=== PATIENT | male | born 1935 | race Caucasian/White ===

== ENCOUNTER 2022-09-23 18:52 | Inpatient (IN) | payer MEDICARE, OTHER ==
[2022-09-23 19:40] LABS: #Basophils 0.1 thou/uL (0.0-0.2); #Eosinphils 0.2 thou/uL (0.0-0.7); #Lymphocytes 2.8 thou/uL (1.20-3.40); #Monocytes 0.9 thou/uL (0.11-0.59); #Neutrophils 4.7 thou/uL (1.40-6.50); %Basophils 0.6 % (0.0-1.0); %Eosinophils 2.6 % (0.0-10.0); %Lymphocytes 31.9 % (21.0-51.0); %Monocytes 10.5 % (0.0-10.0); %Neutrophils 54.5 % (42.0-75.0); Hemoglobin 12.6 g/dL (14.0-18.0); Mean Corpuscular Hemoglobin 32.3 pg (27.0-31.0); Mean Corpuscular Volume 97.8 fl (78.0-98.0); Platelet Count 209 10x3/uL (130-400); RBC Distribution Width 13.3 % (11.5-14.5); Red Blood Cell (RBC) Count 3.89 mill/uL (4.70-6.10); White Blood Cell (WBC) Count 8.6 10x3/uL (4.8-10.8)
[2022-09-23 20:02] LABS: ALT (SGPT) 18 U/L (8-55); AST (SGOT) 24 U/L (5-34); Albumin 4.1 g/dL (3.4-4.8); Alkaline Phosphatase 48 U/L (40-110); Anion Gap 14 mmol/L (10-20); BUN (Urea Nitrogen) 33 mg/dL (8.4-25.7); Bilirubin, Total 0.5 mg/dL (0.2-1.2); Calc. Creatinine Clearance 0 mL/min (70-130); Calcium 9.2 mg/dL (7.8-10.44); Carbon Dioxide 21 mmol/L (23-31); Chloride 109 mmol/L (98-107); Estimated GFR 38; Globulin 2.4 g/dL (2.4-3.5); Glucose 119 mg/dL (83-110); Potassium 5.6 mmol/L (3.5-5.1); Protein, Total 6.5 g/dL (5.8-8.1); Sodium 138 mmol/L (136-145)
[2022-09-23 20:22] LABS: CKMB 7.6 ng/mL (0-6.6)
[2022-09-23 20:23] LABS: SARS-CoV-2 NAA Rapid Test Not Detected (NotDetected)
[2022-09-23] MEDS ORDERED: cefTRIAXone\\ROCEPHIN 1 GM VIAL ONE (21:03)
[2022-09-23] MEDS ORDERED: Aspirin Chewable 81 MG TAB ONE (21:06)
[2022-09-23] MEDS ORDERED: Acetaminophen 650 MG Suppository PR PRN (21:45)
[2022-09-23] MEDS ORDERED: Ondansetron ODT 4 MG TAB PO PRN (21:45)
[2022-09-23] MEDS ORDERED: Azithromycin 500 MG VIAL ONE (21:45)
[2022-09-23] MEDS ORDERED: Ondansetron PF 4 MG/2 ML Vial IVP PRN (21:45)
[2022-09-23] MEDS ORDERED: Acetaminophen 325 MG TAB PO PRN (21:45)
[2022-09-23] MEDS ORDERED: Furosemide 40 MG/4 ML VIAL SLOW IVP SCH (22:00)
[2022-09-23] MEDS ORDERED: Enoxaparin 120 MG/0.8 ML SYRINGE SC SCH (22:00)
[2022-09-23] MEDS ORDERED: Furosemide 40 MG/4 ML VIAL ONE (22:17)
[2022-09-23 22:36] LABS: Troponin I 0.045 ng/mL (< 0.028)
[2022-09-23] MEDS ORDERED: Electrolyte Replacement Protocol 1 EACH FS SCH (23:00)
[2022-09-23] MEDS ORDERED: Dextrose 50% Abboject 50 ML SYRINGE SLOW IVP PRN (23:42)
[2022-09-23] MEDS ORDERED: Dextrose 5% in Water 1,000 ML IV PRN (23:42)
[2022-09-23 23:49] LABS: Anion Gap 16 mmol/L (10-20); BUN (Urea Nitrogen) 31 mg/dL (8.4-25.7); Calc. Creatinine Clearance 0 mL/min (70-130); Calcium 9.6 mg/dL (7.8-10.44); Carbon Dioxide 21 mmol/L (23-31); Chloride 107 mmol/L (98-107); Estimated GFR 35; Glucose 100 mg/dL (83-110); Magnesium 1.9 mg/dL (1.6-2.6); Sodium 139 mmol/L (136-145)
[2022-09-24 01:16] VITALS: BMI 35.2
[2022-09-24] MEDS ORDERED: Magnesium 2 GM/50 ML(in water) 2 GM in Premix Bag 1 BAG IVPB SCH (02:30)
[2022-09-24 02:43] LABS: #Eosinphils 0.3 thou/uL (0.0-0.7); #Lymphocytes 1.9 thou/uL (1.20-3.40); #Neutrophils 4.7 thou/uL (1.40-6.50); %Basophils 0.3 % (0.0-1.0); %Eosinophils 3.7 % (0.0-10.0); %Lymphocytes 23.9 % (21.0-51.0); %Neutrophils 59.1 % (42.0-75.0); Hemoglobin 11.6 g/dL (14.0-18.0); Mean Corpuscular HGB CONC 32.2 g/dL (32.0-36.0); Mean Corpuscular Hemoglobin 31.8 pg (27.0-31.0); Mean Corpuscular Volume 98.7 fl (78.0-98.0); Mean Platelet Volume 7.7 fL (7.4-10.4); Platelet Count 206 10x3/uL (130-400); RBC Distribution Width 13.3 % (11.5-14.5); Red Blood Cell (RBC) Count 3.65 mill/uL (4.70-6.10)
[2022-09-24 03:04] LABS: Chloride 109 mmol/L (98-107); Sodium 140 mmol/L (136-145)
[2022-09-24 03:05] LABS: Calcium 9.1 mg/dL (7.8-10.44); Glucose 108 mg/dL (83-110)
[2022-09-24 03:06] LABS: Troponin I 0.054 ng/mL (< 0.028)
[2022-09-24 03:07] LABS: Anion Gap 15 mmol/L (10-20); Carbon Dioxide 21 mmol/L (23-31)
[2022-09-24 03:09] LABS: BUN (Urea Nitrogen) 36 mg/dL (8.4-25.7); Calc. Creatinine Clearance 43 mL/min (70-130); Estimated GFR 34
[2022-09-24] MEDS ORDERED: Furosemide 40 MG/4 ML VIAL SLOW IVP SCH (10:45)
[2022-09-24 14:43] LABS: Bacteria/HPF None Seen HPF (None Seen); Bilirubin Negative (Negative); Blood, Urine Negative (Negative); Clarity Clear (Clear); Glucose, Urine (Dipstick) Normal (Negative); Ketone, Urine Negative (Negative); Leukocyte Negative Leu/uL (Negative); Nitrite Negative (Negative); Protein, Urine (Dipstick) 20 mg/dL (Neg-Trace); RBC/HPF 0-3 HPF (0-3); Specific Gravity, Urine 1.008 (1.002-1.036); Squamous Epithelial None Seen HPF (0-3); Urobilinogen Normal mg/dL (Less than 2); WBC/HPF 0-3 HPF (0-3)
[2022-09-24] MEDS: Furosemide 40 MG/4 ML VIAL SLOW IVP SCH (15:29)
[2022-09-24 17:04] LABS: Potassium 5.2 mmol/L (3.5-5.1)
[2022-09-24 17:10] LABS: Cardiac Risk 5.2 (Less than 4.5)
[2022-09-24] MEDS ORDERED: Insulin Regular 300 UNITS/3 ML VIAL IVP SCH (18:02)
[2022-09-24] MEDS ORDERED: Dextrose 50% Abboject 50 ML SYRINGE SLOW IVP ONE (18:03)
[2022-09-24] MEDS ORDERED: Dextrose 10% in Water 250 ML IVPB SCH (18:15)
[2022-09-24] MEDS ORDERED: Cyclobenzaprine 10 MG TAB PO SCH (20:15)
[2022-09-24] MEDS: Aspirin 81 mg Enteric Coated Tablet PO SCH (20:47)
[2022-09-24] MEDS: Atorvastatin Calcium 10 MG TAB PO SCH (20:47)
[2022-09-24] MEDS: Heparin 5,000 UNITS/ML VIAL SC SCH (20:52)
[2022-09-24] MEDS: Azithromycin 500 MG in Sodium Chloride 0.9% 250 ML 250 ML IVPB SCH (20:54)
[2022-09-24] MEDS: cefTRIAXone\\ROCEPHIN 1 GM in Sodium Chloride 0.9% 100 ML IVPB SCH (22:54)
[2022-09-25] MEDS: Furosemide 40 MG/4 ML VIAL SLOW IVP SCH (05:54)
[2022-09-25] MEDS: Heparin 5,000 UNITS/ML VIAL SC SCH ×2 (08:57→20:18)
[2022-09-25 09:19] LABS: Anion Gap 13 mmol/L (10-20); BUN (Urea Nitrogen) 39 mg/dL (8.4-25.7); Calc. Creatinine Clearance 39 mL/min (70-130); Calcium 9.5 mg/dL (7.8-10.44); Carbon Dioxide 27 mmol/L (23-31); Chloride 102 mmol/L (98-107); Estimated GFR 32; Glucose 218 mg/dL (83-110); Potassium 4.4 mmol/L (3.5-5.1); Sodium 138 mmol/L (136-145)
[2022-09-25 10:58] LABS: Hemoglobin A1c 6.3 % (4.0-6.0)
[2022-09-25] MEDS ORDERED: Furosemide 40 MG TAB PO SCH (14:00)
[2022-09-25] MEDS: HumaLOG 300 UNITS/3 ML VIAL SC PRN ×2 (16:45→22:00)
[2022-09-25] MEDS: cefTRIAXone\\ROCEPHIN 1 GM in Sodium Chloride 0.9% 100 ML IVPB SCH (20:16)
[2022-09-25] MEDS: Azithromycin 500 MG in Sodium Chloride 0.9% 250 ML 250 ML IVPB SCH (20:17)
[2022-09-25] MEDS: Aspirin 81 mg Enteric Coated Tablet PO SCH (20:17)
[2022-09-25] MEDS: Atorvastatin Calcium 10 MG TAB PO SCH (20:18)
[2022-09-26] MEDS: HumaLOG 300 UNITS/3 ML VIAL SC PRN ×3 (08:01→17:05)
[2022-09-26] MEDS: Heparin 5,000 UNITS/ML VIAL SC SCH ×2 (09:36→20:35)
[2022-09-26 09:57] LABS: Anion Gap 15 mmol/L (10-20); BUN (Urea Nitrogen) 38 mg/dL (8.4-25.7); Calc. Creatinine Clearance 41 mL/min (70-130); Calcium 9.7 mg/dL (7.8-10.44); Carbon Dioxide 27 mmol/L (23-31); Chloride 102 mmol/L (98-107); Estimated GFR 34; Glucose 151 mg/dL (83-110); Phosphorus 3.9 mg/dL (2.3-4.7); Potassium 4.6 mmol/L (3.5-5.1); Sodium 139 mmol/L (136-145)
[2022-09-26] MEDS ORDERED: Magnesium 2 GM/50 ML(in water) 2 GM in Premix Bag 1 BAG IVPB SCH (12:15)
[2022-09-26] MEDS: Atorvastatin Calcium 10 MG TAB PO SCH (20:34)
[2022-09-26] MEDS: Aspirin 81 mg Enteric Coated Tablet PO SCH (20:34)
[2022-09-26] MEDS: Azithromycin 500 MG in Sodium Chloride 0.9% 250 ML 250 ML IVPB SCH (20:35)
[2022-09-26] MEDS: Benzonatate 100 MG CAP PO PRN (21:38)
[2022-09-26] MEDS: cefTRIAXone\\ROCEPHIN 1 GM in Sodium Chloride 0.9% 100 ML IVPB SCH (21:38)
[2022-09-27] MEDS: Furosemide 40 MG TAB PO SCH (08:46)
[2022-09-27] MEDS: Heparin 5,000 UNITS/ML VIAL SC SCH ×2 (08:46→21:13)
[2022-09-27] MEDS: Benzonatate 100 MG CAP PO PRN ×2 (08:46→14:10)
[2022-09-27] MEDS ORDERED: Communication Order-Pharmacy FS SCH (09:00)
[2022-09-27] MEDS ORDERED: FLU VACC QS2022-23(65YR UP)/PF 240 MCG/0.7 ML SYRINGE IM ONE (09:00)
[2022-09-27] MEDS ORDERED: Sodium Chloride 0.9% 1,000 ML IV SCH (09:00)
[2022-09-27] MEDS: HumaLOG 300 UNITS/3 ML VIAL SC PRN ×2 (11:34→17:19)
[2022-09-27] MEDS: Atorvastatin Calcium 10 MG TAB PO SCH (21:13)
[2022-09-27] MEDS: Aspirin 81 mg Enteric Coated Tablet PO SCH (21:13)
[2022-09-27] MEDS: GUAIFENESIN SF SOLN 200 MG/10 ML UDCUP PO PRN (21:13)
[2022-09-27] MEDS: Azithromycin 500 MG in Sodium Chloride 0.9% 250 ML 250 ML IVPB SCH (21:13)
[2022-09-27] MEDS: cefTRIAXone\\ROCEPHIN 1 GM in Sodium Chloride 0.9% 100 ML IVPB SCH (22:18)
[2022-09-28 05:05] LABS: Anion Gap 15 mmol/L (10-20); BUN (Urea Nitrogen) 39 mg/dL (8.4-25.7); Calc. Creatinine Clearance 45 mL/min (70-130); Calcium 9.3 mg/dL (7.8-10.44); Carbon Dioxide 24 mmol/L (23-31); Chloride 104 mmol/L (98-107); Estimated GFR 38; Glucose 147 mg/dL (83-110); Potassium 4.4 mmol/L (3.5-5.1); Sodium 139 mmol/L (136-145)
[2022-09-28] MEDS ORDERED: Sodium Chloride 0.9% 1,000 ML IV SCH (06:00)
[2022-09-28] MEDS: Heparin 5,000 UNITS/ML VIAL SC SCH ×2 (08:57→21:10)
[2022-09-28] MEDS: Furosemide 40 MG TAB PO SCH (11:40)
[2022-09-28] MEDS: Sodium Chloride 0.9% 1,000 ML IV SCH (13:46)
[2022-09-28] MEDS: HumaLOG 300 UNITS/3 ML VIAL SC PRN (18:11)
[2022-09-28] MEDS: Azithromycin 500 MG in Sodium Chloride 0.9% 250 ML 250 ML IVPB SCH (21:08)
[2022-09-28] MEDS: Aspirin 81 mg Enteric Coated Tablet PO SCH (21:09)
[2022-09-28] MEDS: Atorvastatin Calcium 10 MG TAB PO SCH (21:10)
[2022-09-28] MEDS: GUAIFENESIN SF SOLN 200 MG/10 ML UDCUP PO PRN (21:10)
[2022-09-28] MEDS: cefTRIAXone\\ROCEPHIN 1 GM in Sodium Chloride 0.9% 100 ML IVPB SCH (22:28)
[2022-09-29 04:18] LABS: #Eosinphils 0.3 thou/uL (0.0-0.7); #Lymphocytes 2.4 thou/uL (1.20-3.40); #Monocytes 0.8 thou/uL (0.11-0.59); #Neutrophils 2.8 thou/uL (1.40-6.50); %Basophils 0.5 % (0.0-1.0); %Eosinophils 5.3 % (0.0-10.0); %Lymphocytes 37.2 % (21.0-51.0); %Neutrophils 44.9 % (42.0-75.0); Mean Corpuscular HGB CONC 33.2 g/dL (32.0-36.0); Mean Corpuscular Hemoglobin 32.5 pg (27.0-31.0); Mean Corpuscular Volume 97.8 fl (78.0-98.0); Mean Platelet Volume 7.9 fL (7.4-10.4); Platelet Count 214 10x3/uL (130-400); Red Blood Cell (RBC) Count 3.68 mill/uL (4.70-6.10); White Blood Cell (WBC) Count 6.3 10x3/uL (4.8-10.8)
[2022-09-29 04:40] LABS: Anion Gap 10 mmol/L (10-20); BUN (Urea Nitrogen) 35 mg/dL (8.4-25.7); Calc. Creatinine Clearance 49 mL/min (70-130); Calcium 8.9 mg/dL (7.8-10.44); Carbon Dioxide 26 mmol/L (23-31); Chloride 105 mmol/L (98-107); Estimated GFR 43; Glucose 156 mg/dL (83-110); Magnesium 1.9 mg/dL (1.6-2.6); Potassium 4.3 mmol/L (3.5-5.1); Sodium 137 mmol/L (136-145)
[2022-09-29] MEDS: Sodium Chloride 0.9% 1,000 ML IV SCH ×2 (04:45→17:55)
[2022-09-29] MEDS ORDERED: Magnesium 2 GM/50 ML(in water) 2 GM in Premix Bag 1 BAG IVPB SCH (08:00)
[2022-09-29] MEDS: Furosemide 40 MG TAB PO SCH (09:36)
[2022-09-29] MEDS: Benzonatate 100 MG CAP PO PRN ×2 (09:36→20:09)
[2022-09-29] MEDS: Heparin 5,000 UNITS/ML VIAL SC SCH ×2 (09:36→20:09)
[2022-09-29] MEDS ORDERED: Communication Order-Pharmacy FS SCH (17:15)
[2022-09-29] MEDS: HumaLOG 300 UNITS/3 ML VIAL SC PRN (17:55)
[2022-09-29] MEDS: Aspirin 81 mg Enteric Coated Tablet PO SCH (20:08)
[2022-09-29] MEDS: Atorvastatin Calcium 10 MG TAB PO SCH (20:08)
[2022-09-30 05:10] LABS: #Eosinphils 0.3 thou/uL (0.0-0.7); #Lymphocytes 2.8 thou/uL (1.20-3.40); #Monocytes 0.9 thou/uL (0.11-0.59); #Neutrophils 3.5 thou/uL (1.40-6.50); %Basophils 0.5 % (0.0-1.0); %Eosinophils 4.5 % (0.0-10.0); %Lymphocytes 36.9 % (21.0-51.0); %Monocytes 11.4 % (0.0-10.0); %Neutrophils 46.7 % (42.0-75.0); Hemoglobin 11.8 g/dL (14.0-18.0); Mean Corpuscular Hemoglobin 32.5 pg (27.0-31.0); Mean Corpuscular Volume 98.6 fl (78.0-98.0); Mean Platelet Volume 7.9 fL (7.4-10.4); Platelet Count 220 10x3/uL (130-400); RBC Distribution Width 12.9 % (11.5-14.5); Red Blood Cell (RBC) Count 3.62 mill/uL (4.70-6.10); White Blood Cell (WBC) Count 7.5 10x3/uL (4.8-10.8)
[2022-09-30 05:24] LABS: Anion Gap 12 mmol/L (10-20); BUN (Urea Nitrogen) 37 mg/dL (8.4-25.7); Calc. Creatinine Clearance 47 mL/min (70-130); Calcium 8.9 mg/dL (7.8-10.44); Carbon Dioxide 24 mmol/L (23-31); Chloride 107 mmol/L (98-107); Estimated GFR 40; Glucose 156 mg/dL (83-110); Potassium 4.3 mmol/L (3.5-5.1); Sodium 139 mmol/L (136-145)
[2022-09-30] MEDS: Sodium Chloride 0.9% 1,000 ML IV SCH (05:39)
[2022-09-30] MEDS: HumaLOG 300 UNITS/3 ML VIAL SC PRN ×3 (06:12→21:49)
[2022-09-30] MEDS ORDERED: Nitroglycerin 100MG/250ML BOT 0 ML ONE (06:28)
[2022-09-30] MEDS ORDERED: Adenosine 6 MG/2 ML VIAL ONE (06:28)
[2022-09-30] MEDS ORDERED: Lidocaine 1% (PF) 30 ML VIAL ONE (06:28)
[2022-09-30] MEDS ORDERED: Heparin 10,000 UNITS/ 10 ML VIAL ONE (06:28)
[2022-09-30] MEDS ORDERED: FENTANYL 50 MCG/ML 1 ML VIAL ONE (07:04)
[2022-09-30] MEDS ORDERED: Midazolam HCl 2 mg/2 ml Vial ONE (07:04)
[2022-09-30 08:32] LABS: Actual Bicarbonate (HCO3a) 27.2 mEq/L (22-28); Base Excess (BEa) 1.7 mEq/L (-2.0 to +3.0); CO2 Tension 46.2 mmHg (35.0-45.0); Carboxyhemoglobin (COHb) 0.4 gm% (0.0-3.0); Hemoglobin (Hb) 13.4 g/dL (14.0-18.0); Potassium - ABG Lab 4.23 mmol/L (3.70-5.30); pH, Arterial 7.39 (7.35-7.45)
[2022-09-30 08:35] LABS: Actual Bicarbonate (HCO3a) 25.7 mEq/L (22-28); Base Excess (BEa) 0.6 mEq/L (-2.0 to +3.0); CO2 Tension 42.9 mmHg (35.0-45.0); Calcium, Ionized (arterial) 1.19 mmol/L (1.12-1.30); Carboxyhemoglobin (COHb) 0.5 gm% (0.0-3.0); Hemoglobin (Hb) 13.4 g/dL (14.0-18.0)
[2022-09-30 08:40] LABS: Actual Bicarbonate (HCO3a) 23.7 mEq/L (22-28); Base Excess (BEa) -0.3 mEq/L (-2.0 to +3.0); CO2 Tension 36.6 mmHg (35.0-45.0); Calcium, Ionized (arterial) 1.17 mmol/L (1.12-1.30); Carboxyhemoglobin (COHb) 0.2 gm% (0.0-3.0); Hemoglobin (Hb) 13.2 g/dL (14.0-18.0); O2 Tension (PaO2), arterial 96.5 mmHg (> 60.0); Potassium - ABG Lab 4.12 mmol/L (3.70-5.30); pH, Arterial 7.43 (7.35-7.45)
[2022-09-30 08:43] LABS: Actual Bicarbonate (HCO3a) 25.2 mEq/L (22-28); CO2 Tension 43.3 mmHg (35.0-45.0); Calcium, Ionized (arterial) 1.21 mmol/L (1.12-1.30); Carboxyhemoglobin (COHb) 0.5 gm% (0.0-3.0); Hemoglobin (Hb) 13.2 g/dL (14.0-18.0); Potassium - ABG Lab 4.14 mmol/L (3.70-5.30); pH, Arterial 7.38 (7.35-7.45)
[2022-09-30 08:46] LABS: Puncture Site Arterial Line
[2022-09-30 08:47] LABS: Puncture Site Arterial Line
[2022-09-30 08:48] LABS: Puncture Site Arterial Line
[2022-09-30 08:49] LABS: Puncture Site Arterial Line
[2022-09-30] MEDS ORDERED: DOBUTamine 500 mg/250 ml 250 ML IVPB SCH (09:00)
[2022-09-30] MEDS: Empagliflozin 10 MG TAB PO SCH (10:32)
[2022-09-30] MEDS: Aspirin 81 mg Enteric Coated Tablet PO SCH (10:33)
[2022-09-30] MEDS: Furosemide 40 MG TAB PO SCH ×3 (10:33→18:27)
[2022-09-30] MEDS: Magnesium 2 GM/50 ML(in water) 2 GM in Premix Bag 1 BAG IVPB SCH ×2 (10:33→10:46)
[2022-09-30] MEDS: DOBUTamine 500 mg/250 ml 500 MG in Premix Bag 1 BAG IVPB SCH (10:34)
[2022-09-30] MEDS ORDERED: Iopamidol 370 76% 100 ML VIAL ONE ×2 (15:24)
[2022-09-30] MEDS ORDERED: Iopamidol 370 76% 50 ML VIAL FS ONE (15:24)
[2022-09-30] MEDS: GUAIFENESIN SF SOLN 200 MG/10 ML UDCUP PO PRN ×2 (15:56→21:54)
[2022-09-30] MEDS: Benzonatate 100 MG CAP PO PRN (17:54)
[2022-09-30] MEDS ORDERED: Nitroglycerin 0.4 MG TAB (25 Tab Bottle) SL PRN (18:02)
[2022-09-30] MEDS ORDERED: Acetaminophen/Codeine 30-300mg Tablet PO PRN ×2 (18:02)
[2022-09-30] MEDS ORDERED: Sodium Chloride 0.9% 200 ML IV PRN (18:02)
[2022-09-30] MEDS: Atorvastatin Calcium 10 MG TAB PO SCH (21:48)
[2022-10-01] MEDS: Benzonatate 100 MG CAP PO PRN ×2 (01:14→18:36)
[2022-10-01 04:59] LABS: Anion Gap 14 mmol/L (10-20); BUN (Urea Nitrogen) 33 mg/dL (8.4-25.7); Calc. Creatinine Clearance 41 mL/min (70-130); Calcium 9.2 mg/dL (7.8-10.44); Carbon Dioxide 23 mmol/L (23-31); Chloride 103 mmol/L (98-107); Estimated GFR 34; Glucose 159 mg/dL (83-110); Potassium 4.1 mmol/L (3.5-5.1); Sodium 136 mmol/L (136-145)
[2022-10-01] MEDS: HumaLOG 300 UNITS/3 ML VIAL SC PRN ×3 (06:19→18:31)
[2022-10-01] MEDS: Empagliflozin 10 MG TAB PO SCH (09:08)
[2022-10-01] MEDS: Furosemide 40 MG TAB PO SCH (09:10)
[2022-10-01] MEDS: Heparin 5,000 UNITS/ML VIAL SC SCH ×2 (15:42→20:49)
[2022-10-01] MEDS: DOBUTamine 500 mg/250 ml 500 MG in Premix Bag 1 BAG IVPB SCH (18:19)
[2022-10-01] MEDS: Aspirin 81 mg Enteric Coated Tablet PO SCH (20:49)
[2022-10-01] MEDS: Atorvastatin Calcium 40 MG TAB PO SCH (20:49)
[2022-10-02 04:39] LABS: Anion Gap 13 mmol/L (10-20); BUN (Urea Nitrogen) 34 mg/dL (8.4-25.7); Calc. Creatinine Clearance 39 mL/min (70-130); Calcium 9.3 mg/dL (7.8-10.44); Carbon Dioxide 24 mmol/L (23-31); Chloride 104 mmol/L (98-107); Estimated GFR 33; Glucose 171 mg/dL (83-110); Potassium 4.2 mmol/L (3.5-5.1); Sodium 137 mmol/L (136-145)
[2022-10-02] MEDS ORDERED: Lactated Ringer's 1,000 ML IV SCH (07:15)
[2022-10-02] MEDS: Heparin 5,000 UNITS/ML VIAL SC SCH ×3 (08:37→21:19)
[2022-10-02] MEDS: Benzonatate 100 MG CAP PO PRN ×2 (08:37→17:08)
[2022-10-02] MEDS: Empagliflozin 10 MG TAB PO SCH (08:37)
[2022-10-02] MEDS ORDERED: Iopamidol 370 76% 100 ML VIAL ONE (08:41)
[2022-10-02] MEDS: GUAIFENESIN SF SOLN 200 MG/10 ML UDCUP PO PRN ×3 (08:47→22:49)
[2022-10-02] MEDS: HumaLOG 300 UNITS/3 ML VIAL SC PRN ×2 (11:13→17:01)
[2022-10-02] MEDS ORDERED: Empagliflozin 10 MG TAB PO SCH ×2 (11:59→12:15)
[2022-10-02] MEDS ORDERED: Polyethylene Glycol 3350 17 GM Packet PO PRN (13:34)
[2022-10-02] MEDS: Polyethylene Glycol 3350 17 GM Packet PO SCH (14:17)
[2022-10-02] MEDS: Atorvastatin Calcium 40 MG TAB PO SCH (21:19)
[2022-10-02] MEDS: Aspirin 81 mg Enteric Coated Tablet PO SCH (21:19)
[2022-10-03 04:58] LABS: Anion Gap 13 mmol/L (10-20); BUN (Urea Nitrogen) 30 mg/dL (8.4-25.7); Calc. Creatinine Clearance 47 mL/min (70-130); Calcium 9.2 mg/dL (7.8-10.44); Carbon Dioxide 22 mmol/L (23-31); Chloride 103 mmol/L (98-107); Estimated GFR 41; Glucose 144 mg/dL (83-110); Potassium 4.2 mmol/L (3.5-5.1); Sodium 134 mmol/L (136-145)
[2022-10-03] MEDS: DOBUTamine 500 mg/250 ml 500 MG in Premix Bag 1 BAG IVPB SCH (07:42)
[2022-10-03] MEDS: Empagliflozin 10 MG TAB PO SCH (08:58)
[2022-10-03] MEDS: Heparin 5,000 UNITS/ML VIAL SC SCH ×3 (08:58→22:07)
[2022-10-03] MEDS: Polyethylene Glycol 3350 17 GM Packet PO SCH (08:59)
[2022-10-03] MEDS: Benzonatate 100 MG CAP PO PRN ×2 (10:56→18:20)
[2022-10-03] MEDS: HumaLOG 300 UNITS/3 ML VIAL SC PRN (10:56)
[2022-10-03] MEDS: GUAIFENESIN SF SOLN 200 MG/10 ML UDCUP PO PRN ×3 (10:56→22:07)
[2022-10-03] MEDS ORDERED: Loratadine 10 MG TAB PO PRN (13:50)
[2022-10-03] MEDS ORDERED: Tamsulosin HCl 0.4 MG CAP PO SCH (19:30)
[2022-10-03] MEDS: Aspirin 81 mg Enteric Coated Tablet PO SCH (22:07)
[2022-10-03] MEDS: Atorvastatin Calcium 40 MG TAB PO SCH (22:07)
[2022-10-04] MEDS: Heparin 5,000 UNITS/ML VIAL SC SCH ×3 (09:27→20:49)
[2022-10-04] MEDS: Polyethylene Glycol 3350 17 GM Packet PO SCH (09:28)
[2022-10-04] MEDS: Tamsulosin HCl 0.4 MG CAP PO SCH (09:28)
[2022-10-04] MEDS: Empagliflozin 10 MG TAB PO SCH (09:28)
[2022-10-04] MEDS: Fluticasone Propionate Nasal Spray 16 gm Bottle NASAL SCH (09:28)
[2022-10-04 10:58] LABS: Anion Gap 14 mmol/L (10-20); BUN (Urea Nitrogen) 39 mg/dL (8.4-25.7); Calc. Creatinine Clearance 39 mL/min (70-130); Calcium 9.2 mg/dL (7.8-10.44); Carbon Dioxide 25 mmol/L (23-31); Chloride 101 mmol/L (98-107); Estimated GFR 34; Glucose 209 mg/dL (83-110); Potassium 4.4 mmol/L (3.5-5.1); Sodium 136 mmol/L (136-145)
[2022-10-04] MEDS: Carvedilol 3.125 MG TAB PO SCH (16:04)
[2022-10-04] MEDS: Aspirin 81 mg Enteric Coated Tablet PO SCH (20:49)
[2022-10-04] MEDS: GUAIFENESIN SF SOLN 200 MG/10 ML UDCUP PO PRN (20:49)
[2022-10-04] MEDS: Atorvastatin Calcium 40 MG TAB PO SCH (20:49)
[2022-10-05 04:45] LABS: Anion Gap 15 mmol/L (10-20); BUN (Urea Nitrogen) 39 mg/dL (8.4-25.7); Calc. Creatinine Clearance 42 mL/min (70-130); Calcium 9.4 mg/dL (7.8-10.44); Carbon Dioxide 22 mmol/L (23-31); Chloride 105 mmol/L (98-107); Estimated GFR 37; Glucose 145 mg/dL (83-110); Potassium 4.5 mmol/L (3.5-5.1); Sodium 137 mmol/L (136-145)
[2022-10-05 08:14] VITALS: BP 141/67; TEMP 98
[2022-10-05] MEDS ORDERED: Empagliflozin 10 MG TAB PO SCH (09:15)
[2022-10-05] MEDS: Tamsulosin HCl 0.4 MG CAP PO SCH (09:54)
[2022-10-05] MEDS: Carvedilol 3.125 MG TAB PO SCH (09:54)
[2022-10-05] MEDS: Heparin 5,000 UNITS/ML VIAL SC SCH ×2 (09:54→15:21)
[2022-10-05] MEDS: Fluticasone Propionate Nasal Spray 16 gm Bottle NASAL SCH (09:55)
[2022-10-05] MEDS: HumaLOG 300 UNITS/3 ML VIAL SC PRN (12:09)
[2022-10-05] MEDS: Polyethylene Glycol 3350 17 GM Packet PO SCH (12:36)
[2022-10-05 14:06] LABS: O2 Tension (PaO2), arterial 36.3 mmHg (> 60.0)
[2022-10-05 14:08] LABS: O2 Tension (PaO2), arterial 39.9 mmHg (> 60.0)
[2022-10-05 14:13] LABS: O2 Tension (PaO2), arterial 38.1 mmHg (> 60.0)
[2022-10-06] MEDS ORDERED: Empagliflozin 10 MG TAB PO SCH (09:00)
== END 2022-10-05 15:45 | disposition home or self-care (01) | DRG 286 ==
LOC: ERS 18:52 → ERHOLD 21:47 → 2NO 09-24 00:56 → OBSVTOIN 09-24 15:32
PROVIDERS: ADMIT Hospitalist; ATTEND Hospitalist
PROC: 4A023N8 Measurement of Cardiac Sampling and Pressure, Bilateral, Percutaneous Approach (ICD-10-PCS; principal; 2022-09-30)
PROC: B2111ZZ Fluoroscopy of Multiple Coronary Arteries using Low Osmolar Contrast (ICD-10-PCS; 2022-09-30)
PROC: B2161ZZ Fluoroscopy of Right and Left Heart using Low Osmolar Contrast (ICD-10-PCS; 2022-09-30)
PROC: 3E033XZ Introduction of Vasopressor into Peripheral Vein, Percutaneous Approach (ICD-10-PCS; 2022-09-30)
DX: I13.0 Hypertensive heart and chronic kidney disease with heart failure and stage 1 through stage 4 chronic kidney disease, or unspecified chronic kidney disease (principal); Z20.822 Contact with and (suspected) exposure to COVID-19; I50.43 Acute on chronic combined systolic (congestive) and diastolic (congestive) heart failure; J18.9 Pneumonia, unspecified organism; J96.01 Acute respiratory failure with hypoxia; N17.9 Acute kidney failure, unspecified; E87.20 Acidosis, unspecified; I42.8 Other cardiomyopathies; I25.10 Atherosclerotic heart disease of native coronary artery without angina pectoris; I25.82 Chronic total occlusion of coronary artery; E66.9 Obesity, unspecified; I08.3 Combined rheumatic disorders of mitral, aortic and tricuspid valves; E78.5 Hyperlipidemia, unspecified; E87.5 Hyperkalemia; I44.7 Left bundle-branch block, unspecified; N18.30 Chronic kidney disease, stage 3 unspecified; D63.1 Anemia in chronic kidney disease; R77.8 Other specified abnormalities of plasma proteins; E78.00 Pure hypercholesterolemia, unspecified; E11.65 Type 2 diabetes mellitus with hyperglycemia; E11.22 Type 2 diabetes mellitus with diabetic chronic kidney disease; R00.1 Bradycardia, unspecified; Z28.21 Immunization not carried out because of patient refusal; Z68.32 Body mass index [BMI] 32.0-32.9, adult; Z79.899 Other long term (current) drug therapy; Z79.82 Long term (current) use of aspirin; Z79.4 Long term (current) use of insulin; Z79.84 Long term (current) use of oral hypoglycemic drugs; Z90.49 Acquired absence of other specified parts of digestive tract; Z98.49 Cataract extraction status, unspecified eye
CPT/HCPCS: 36415; 36416; 71045; 71260; 76770; 80048; 80053; 80061; 81001; 82553; 82805; 83036; 83605; 83735; 83880; 84100; 84484; 85025; 87804; 87811; 93005; 93010; 93306; 93460; 94640; 94760; 96372; 96374; 96375; 96376; 97139; C1751; C1769; C1894; G0378; J0153; J0456; J0696; J1250; J1644; J1650; J1815; J1940; J2001; J2250; J3010; J3475; J3490; J7050; J7120; J7611; Q9967; U0002

== ENCOUNTER 2023-06-29 14:32 | Emergency (ER) | payer MEDICARE, OTHER ==
[2023-06-29 15:19] LABS: #Eosinphils 0.3 thou/uL (0.0-0.7); #Monocytes 0.7 thou/uL (0.11-0.59); %Basophils 0.6 % (0.0-1.0); %Eosinophils 5.2 % (0.0-10.0); %Lymphocytes 34.7 % (21.0-51.0); %Monocytes 10.5 % (0.0-10.0); %Neutrophils 48.8 % (42.0-75.0); Hematocrit 45.7 % (42.0-52.0); Hemoglobin 15.2 g/dL (14.0-18.0); Mean Corpuscular HGB CONC 33.3 g/dL (32.0-36.0); Mean Corpuscular Hemoglobin 31.6 pg (27.0-31.0); Mean Platelet Volume 9.8 fL (7.4-10.4); Platelet Count 201 10x3/uL (130-400); RBC Distribution Width 14.6 % (11.5-14.5); Red Blood Cell (RBC) Count 4.81 mill/uL (4.70-6.10); White Blood Cell (WBC) Count 6.2 10x3/uL (4.8-10.8)
[2023-06-29 15:44] LABS: ALT (SGPT) 14 U/L (8-55); AST (SGOT) 20 U/L (5-34); Albumin 4.2 g/dL (3.4-4.8); Alkaline Phosphatase 76 U/L (40-110); Anion Gap 12 mmol/L (10-20); BUN (Urea Nitrogen) 27 mg/dL (8.4-25.7); Bilirubin, Total 0.6 mg/dL (0.2-1.2); Calc. Creatinine Clearance 0 mL/min (70-130); Calcium 9.4 mg/dL (7.8-10.44); Carbon Dioxide 24 mmol/L (23-31); Chloride 106 mmol/L (98-107); Estimated GFR 42; Globulin 2.3 g/dL (2.4-3.5); Glucose 139 mg/dL (83-110); Potassium 4.4 mmol/L (3.5-5.1); Protein, Total 6.5 g/dL (5.8-8.1); Sodium 138 mmol/L (136-145)
[2023-06-29 15:52] LABS: Troponin I 0.032 ng/mL (< 0.028)
[2023-06-29 16:27] LABS: Bilirubin Negative (Negative); Blood, Urine Negative (Negative); CAUTI Indications for Culture Pelvic or flank pain; Clarity Clear (Clear); Glucose, Urine (Dipstick) Greater than 1000 mg/dL (Negative); Ketone, Urine Negative (Negative); Leukocyte Negative Leu/uL (Negative); Nitrite Negative (Negative); Protein, Urine (Dipstick) 50 mg/dL (Neg-Trace); RBC/HPF 0-3 HPF (0-3); Specific Gravity, Urine 1.008 (1.002-1.036); Squamous Epithelial 0-3 HPF (0-3); Urobilinogen Normal mg/dL (Less than 2); WBC/HPF None Seen HPF (0-3); pH, Urine 5.5 (5.0-9.0)
[2023-06-29 16:29] LABS: Bacteria/HPF 1+ HPF (None Seen)
[2023-06-29 16:30] LABS: Urine Culture Reflex No No
[2023-06-29] MEDS ORDERED: Meclizine HCl 25 MG TAB ONE (17:02)
== END 2023-06-29 18:18 | disposition home or self-care (01) ==
LOC: ERS 14:32
DX: E11.65 Type 2 diabetes mellitus with hyperglycemia (principal); R42 Dizziness and giddiness; Z87.891 Personal history of nicotine dependence; I10 Essential (primary) hypertension; Z79.84 Long term (current) use of oral hypoglycemic drugs; Z79.4 Long term (current) use of insulin; Z79.82 Long term (current) use of aspirin
CPT/HCPCS: 36415; 70450; 80053; 81001; 84484; 85025

== ENCOUNTER 2023-10-05 11:05 | Emergency (ER) | payer MEDICARE, OTHER ==
[2023-10-05] MEDS ORDERED: traMADol HCl 50 MG TAB ONE (13:38)
[2023-10-05] MEDS ORDERED: predniSONE 20 MG TAB ONE (13:38)
== END 2023-10-05 13:40 | disposition home or self-care (01) ==
LOC: ERS 11:05
DX: M25.562 Pain in left knee (principal); M25.462 Effusion, left knee; I10 Essential (primary) hypertension; E78.5 Hyperlipidemia, unspecified; E11.9 Type 2 diabetes mellitus without complications; Z87.891 Personal history of nicotine dependence; Z79.84 Long term (current) use of oral hypoglycemic drugs; Z79.4 Long term (current) use of insulin
CPT/HCPCS: J7512

== ENCOUNTER 2023-10-08 12:29 | Inpatient (IN) | payer OTHER ==
[2023-10-08 13:23] LABS: #Monocytes 1.1 thou/uL (0.11-0.59); #Neutrophils 7.1 thou/uL (1.40-6.50); %Basophils 0.3 % (0.0-1.0); %Eosinophils 0.2 % (0.0-10.0); %Lymphocytes 19.6 % (21.0-51.0); %Monocytes 10.4 % (0.0-10.0); %Neutrophils 69.1 % (42.0-75.0); Hematocrit 40.4 % (42.0-52.0); Hemoglobin 13.5 g/dL (14.0-18.0); Mean Corpuscular HGB CONC 33.4 g/dL (32.0-36.0); Mean Corpuscular Hemoglobin 31.7 pg (27.0-31.0); Mean Corpuscular Volume 94.8 fl (78.0-98.0); Mean Platelet Volume 10.5 fL (7.4-10.4); Platelet Count 234 10x3/uL (130-400); RBC Distribution Width 14.7 % (11.5-14.5); Red Blood Cell (RBC) Count 4.26 mill/uL (4.70-6.10); White Blood Cell (WBC) Count 10.3 10x3/uL (4.8-10.8)
[2023-10-08 13:45] LABS: ALT (SGPT) 13 U/L (8-55); AST (SGOT) 16 U/L (5-34); Albumin 3.6 g/dL (3.4-4.8); Alkaline Phosphatase 52 U/L (40-110); Anion Gap 12 mmol/L (10-20); BUN (Urea Nitrogen) 54 mg/dL (8.4-25.7); Bilirubin, Total 1.1 mg/dL (0.2-1.2); Calc. Creatinine Clearance 0 mL/min (70-130); Calcium 9.5 mg/dL (7.8-10.44); Carbon Dioxide 26 mmol/L (23-31); Chloride 105 mmol/L (98-107); Estimated GFR 32; Glucose 141 mg/dL (83-110); Magnesium 2.6 mg/dL (1.6-2.6); Potassium 4.7 mmol/L (3.5-5.1); Protein, Total 6.6 g/dL (5.8-8.1); Sodium 138 mmol/L (136-145)
[2023-10-08 13:58] LABS: Critical Call Chem Troponin I NUR.KLH3@1357; Troponin I 1.374 ng/mL (< 0.028)
[2023-10-08 14:18] LABS: INR-International Normal Ratio 1.1; Prothrombin Time 14.1 sec (12.0-14.7)
[2023-10-08 14:19] LABS: PTT 31.7 sec (22.9-36.1)
[2023-10-08] MEDS ORDERED: Ondansetron PF 4 MG/2 ML Vial IVP PRN (14:20)
[2023-10-08] MEDS ORDERED: Ondansetron ODT 4 MG TAB PO PRN (14:20)
[2023-10-08] MEDS ORDERED: Calcium Carbonate 500 MG ChewTAB PO PRN (14:20)
[2023-10-08] MEDS ORDERED: Nitroglycerin 2% Ointment 1 INCH/1 GM Packet ONE (14:36)
[2023-10-08] MEDS ORDERED: Furosemide 40 MG (4 mL) VIAL ONE (14:36)
[2023-10-08] MEDS ORDERED: Aspirin Chewable 81 MG TAB ONE (14:36)
[2023-10-08] MEDS ORDERED: Enoxaparin 100 MG (1 mL) SYRINGE ONE (15:05)
[2023-10-08] MEDS ORDERED: Dextrose 50% Abboject 50 ML SYRINGE SLOW IVP PRN (15:57)
[2023-10-08] MEDS ORDERED: Dextrose 5% in Water 1,000 ML IV PRN (15:57)
[2023-10-08] MEDS ORDERED: Glucagon 1 MG/ML KIT IM PRN (15:57)
[2023-10-08 17:28] LABS: Critical Call Chem Troponin I RESULT DECREASING; Troponin I 1.204 ng/mL (< 0.028)
[2023-10-08] MEDS: Carvedilol 3.125 MG TAB PO SCH (18:42)
[2023-10-08] MEDS: Furosemide 40 MG (4 mL) VIAL SLOW IVP SCH (18:43)
[2023-10-08 20:34] LABS: Critical Call Chem Troponin I RESULT DECREASING; Troponin I 1.159 ng/mL (< 0.028)
[2023-10-08] MEDS: Enoxaparin 100 MG (1 mL) SYRINGE SC SCH (22:34)
[2023-10-08] MEDS: Atorvastatin Calcium 10 MG TAB PO SCH (22:34)
[2023-10-08] MEDS: Aspirin 81 mg Enteric Coated Tablet PO SCH (22:34)
[2023-10-08] MEDS: HumuLIN 70/30 100 Unit/ml 10 ml Vial SC SCH (23:14)
[2023-10-09 04:53] LABS: #Monocytes 1.1 thou/uL (0.11-0.59); #Neutrophils 5.3 thou/uL (1.40-6.50); %Basophils 0.3 % (0.0-1.0); %Eosinophils 0.4 % (0.0-10.0); %Lymphocytes 17.5 % (21.0-51.0); %Monocytes 13.9 % (0.0-10.0); %Neutrophils 67.6 % (42.0-75.0); Hematocrit 36.9 % (42.0-52.0); Hemoglobin 12.3 g/dL (14.0-18.0); Mean Corpuscular HGB CONC 33.3 g/dL (32.0-36.0); Mean Corpuscular Hemoglobin 31.5 pg (27.0-31.0); Mean Corpuscular Volume 94.4 fl (78.0-98.0); Mean Platelet Volume 10.5 fL (7.4-10.4); Platelet Count 224 10x3/uL (130-400); RBC Distribution Width 14.7 % (11.5-14.5); Red Blood Cell (RBC) Count 3.91 mill/uL (4.70-6.10); White Blood Cell (WBC) Count 7.9 10x3/uL (4.8-10.8)
[2023-10-09 05:16] LABS: Hemoglobin A1c 6.5 % (4.0-6.0)
[2023-10-09 05:17] LABS: ALT (SGPT) 10 U/L (8-55); AST (SGOT) 13 U/L (5-34); Albumin 3.5 g/dL (3.4-4.8); Alkaline Phosphatase 50 U/L (40-110); Anion Gap 11 mmol/L (10-20); BUN (Urea Nitrogen) 56 mg/dL (8.4-25.7); Bilirubin, Total 1.2 mg/dL (0.2-1.2); Calc. Creatinine Clearance 36 mL/min (70-130); Carbon Dioxide 27 mmol/L (23-31); Cardiac Risk 5.8 (Less than 4.5); Chloride 102 mmol/L (98-107); Cholesterol 133 mg/dl (< 200 Desired); Estimated GFR 30; Globulin 2.9 g/dL (2.4-3.5); Glucose 145 mg/dL (83-110); HDL Cholesterol 23 mg/dL (>60 Neg Risk); LDL Cholesterol, Calculated 84 mg/dL; Magnesium 2.5 mg/dL (1.6-2.6); Potassium 4.3 mmol/L (3.5-5.1); Protein, Total 6.4 g/dL (5.8-8.1); Sodium 136 mmol/L (136-145); Triglycerides 128 mg/dL (Less than 150)
[2023-10-09] MEDS: Furosemide 40 MG (4 mL) VIAL SLOW IVP SCH (05:52)
[2023-10-09] MEDS: Tamsulosin HCl 0.4 MG CAP PO SCH (09:00)
[2023-10-09] MEDS: Empagliflozin 10 MG TAB PO SCH (09:01)
[2023-10-09] MEDS: Senokot S 8.6-50 MG TAB PO PRN (14:13)
[2023-10-10 05:50] LABS: Anion Gap 13 mmol/L (10-20); BUN (Urea Nitrogen) 62 mg/dL (8.4-25.7); Calc. Creatinine Clearance 34 mL/min (70-130); Calcium 9.5 mg/dL (7.8-10.44); Carbon Dioxide 31 mmol/L (23-31); Chloride 99 mmol/L (98-107); Estimated GFR 29; Glucose 164 mg/dL (83-110); Magnesium 2.5 mg/dL (1.6-2.6); Sodium 139 mmol/L (136-145)
[2023-10-10] MEDS: Enoxaparin 100 MG (1 mL) SYRINGE SC SCH (08:07)
[2023-10-10] MEDS: Albumin 25% 25 GM (100 mL) BOT IVPB SCH (11:27)
[2023-10-10] MEDS: HumaLOG 300 UNITS/3 ML VIAL SC PRN (12:23)
[2023-10-10] MEDS: traMADol HCl 50 MG TAB PO PRN (22:17)
[2023-10-10] MEDS: HumuLIN 70/30 100 Unit/ml 10 ml Vial SC SCH (22:19)
[2023-10-10] MEDS: Acetaminophen 325 MG TAB PO PRN (23:35)
[2023-10-11 05:44] LABS: #Eosinphils 0.2 thou/uL (0.0-0.7); #Monocytes 1.1 thou/uL (0.11-0.59); #Neutrophils 4.1 thou/uL (1.40-6.50); %Basophils 0.4 % (0.0-1.0); %Eosinophils 2.9 % (0.0-10.0); %Lymphocytes 25.2 % (21.0-51.0); %Monocytes 15.6 % (0.0-10.0); %Neutrophils 55.5 % (42.0-75.0); Hematocrit 36.1 % (42.0-52.0); Hemoglobin 11.9 g/dL (14.0-18.0); Mean Corpuscular Hemoglobin 31.5 pg (27.0-31.0); Mean Corpuscular Volume 95.5 fl (78.0-98.0); Mean Platelet Volume 10.8 fL (7.4-10.4); Platelet Count 236 10x3/uL (130-400); RBC Distribution Width 14.6 % (11.5-14.5); Red Blood Cell (RBC) Count 3.78 mill/uL (4.70-6.10); White Blood Cell (WBC) Count 7.3 10x3/uL (4.8-10.8)
[2023-10-11 06:04] LABS: Anion Gap 12 mmol/L (10-20); BUN (Urea Nitrogen) 61 mg/dL (8.4-25.7); Calc. Creatinine Clearance 32 mL/min (70-130); Calcium 9.1 mg/dL (7.8-10.44); Carbon Dioxide 32 mmol/L (23-31); Chloride 100 mmol/L (98-107); Estimated GFR 29; Glucose 130 mg/dL (83-110); Magnesium 3.4 mg/dL (1.6-2.6); Potassium 3.9 mmol/L (3.5-5.1); Sodium 140 mmol/L (136-145)
[2023-10-11] MEDS: Enoxaparin 30 MG (0.3 mL) SYRINGE SC SCH (09:19)
[2023-10-11] MEDS: Furosemide 40 MG (4 mL) VIAL SLOW IVP SCH (14:29)
[2023-10-11] MEDS: Acetaminophen 325 MG TAB PO SCH (14:30)
[2023-10-11] MEDS: tiZANidine HCl 4 MG TAB PO SCH ×2 (14:31→23:55)
[2023-10-11] MEDS: Morphine 4 MG/ML VIAL SLOW IVP SCH (19:35)
[2023-10-11] MEDS: DOBUTamine 500 mg/250 ml 250 ML IVPB SCH (20:10)
[2023-10-12 06:24] LABS: #Monocytes 1.7 thou/uL (0.11-0.59); #Neutrophils 9.1 thou/uL (1.40-6.50); %Basophils 0.1 % (0.0-1.0); %Eosinophils 0.1 % (0.0-10.0); %Lymphocytes 11.3 % (21.0-51.0); %Monocytes 13.9 % (0.0-10.0); %Neutrophils 74.2 % (42.0-75.0); Hematocrit 39.6 % (42.0-52.0); Mean Corpuscular HGB CONC 32.8 g/dL (32.0-36.0); Mean Corpuscular Hemoglobin 31.2 pg (27.0-31.0); Mean Platelet Volume 10.5 fL (7.4-10.4); Platelet Count 229 10x3/uL (130-400); RBC Distribution Width 14.6 % (11.5-14.5); Red Blood Cell (RBC) Count 4.17 mill/uL (4.70-6.10); White Blood Cell (WBC) Count 12.3 10x3/uL (4.8-10.8)
[2023-10-12 06:49] LABS: Anion Gap 17 mmol/L (10-20); BUN (Urea Nitrogen) 54 mg/dL (8.4-25.7); BUN/Creatinine Ratio 28.88; Calc. Creatinine Clearance 38 mL/min (70-130); Calcium 9.2 mg/dL (7.8-10.44); Carbon Dioxide 27 mmol/L (23-31); Chloride 97 mmol/L (98-107); Estimated GFR 34; Glucose 130 mg/dL (83-110); Phosphorus 3.9 mg/dL (2.3-4.7); Sodium 137 mmol/L (136-145)
[2023-10-12] MEDS: Furosemide 40 MG (4 mL) VIAL SLOW IVP SCH ×2 (12:17→15:50)
[2023-10-13] MEDS ORDERED: CEFAZOLIN 2 GM in Sodium Chloride 0.9% 100 ML IVPB SCH (00:45)
[2023-10-13] MEDS: GUAIFENESIN SF SOLN 200 MG/10 ML UDCUP PO PRN (01:19)
[2023-10-13] MEDS: Benzonatate 100 MG CAP PO PRN (01:19)
[2023-10-13 07:12] LABS: #Eosinphils 0.2 thou/uL (0.0-0.7); #Monocytes 1.8 thou/uL (0.11-0.59); #Neutrophils 7.5 thou/uL (1.40-6.50); %Basophils 0.2 % (0.0-1.0); %Eosinophils 1.3 % (0.0-10.0); %Lymphocytes 17.4 % (21.0-51.0); %Monocytes 15.2 % (0.0-10.0); %Neutrophils 65.5 % (42.0-75.0); Hematocrit 39.9 % (42.0-52.0); Hemoglobin 13.2 g/dL (14.0-18.0); Mean Corpuscular HGB CONC 33.1 g/dL (32.0-36.0); Mean Corpuscular Hemoglobin 31.1 pg (27.0-31.0); Mean Corpuscular Volume 93.9 fl (78.0-98.0); Mean Platelet Volume 10.8 fL (7.4-10.4); Platelet Count 243 10x3/uL (130-400); RBC Distribution Width 14.4 % (11.5-14.5); Red Blood Cell (RBC) Count 4.25 mill/uL (4.70-6.10); White Blood Cell (WBC) Count 11.5 10x3/uL (4.8-10.8)
[2023-10-13 07:32] LABS: Albumin 3.9 g/dL (3.4-4.8); Anion Gap 12 mmol/L (10-20); BUN (Urea Nitrogen) 57 mg/dL (8.4-25.7); BUN/Creatinine Ratio 28.36; Calc. Creatinine Clearance 34 mL/min (70-130); Calcium 9.5 mg/dL (7.8-10.44); Carbon Dioxide 32 mmol/L (23-31); Chloride 96 mmol/L (98-107); Estimated GFR 32; Glucose 140 mg/dL (83-110); Phosphorus 3.3 mg/dL (2.3-4.7); Potassium 3.9 mmol/L (3.5-5.1); Sodium 136 mmol/L (136-145)
[2023-10-13] MEDS ORDERED: Gentamicin 80 MG/2 ML VIAL ONE (12:51)
[2023-10-13] MEDS ORDERED: Lidocaine 1% (PF) 30 ML VIAL ONE (12:51)
[2023-10-13] MEDS ORDERED: CEFAZOLIN 2 GM VIAL ONE (12:51)
[2023-10-13] MEDS ORDERED: Iopamidol 370 76% 100 ML VIAL ONE (13:22)
[2023-10-13] MEDS ORDERED: Etomidate 40 MG (20 mL) VIAL ONE (15:15)
[2023-10-13] MEDS ORDERED: Ketamine In 0.9 % NaCl 50 MG/5 ML SYRINGE ONE (15:15)
[2023-10-13] MEDS ORDERED: Vasopressin 20 UNITS/ML VIAL ONE (15:27)
[2023-10-13] MEDS ORDERED: Ondansetron HCl/PF 4 MG/2 ML Vial IVP PRN (16:06)
[2023-10-13] MEDS ORDERED: Morphine Sulfate 2 MG/ML SYRINGE SLOW IVP PRN (16:06)
[2023-10-13] MEDS ORDERED: Promethazine HCl 25 MG/ML VIAL IM PRN (16:06)
[2023-10-13] MEDS ORDERED: Ondansetron PF 4 MG/2 ML Vial ONE (16:31)
[2023-10-13] MEDS: Cephalexin 250 MG CAP PO SCH (21:52)
[2023-10-14 06:00] LABS: #Eosinphils 0.2 thou/uL (0.0-0.7); #Monocytes 1.6 thou/uL (0.11-0.59); #Neutrophils 5.9 thou/uL (1.40-6.50); %Basophils 0.1 % (0.0-1.0); %Eosinophils 1.7 % (0.0-10.0); %Lymphocytes 18.1 % (21.0-51.0); %Monocytes 17.2 % (0.0-10.0); %Neutrophils 62.4 % (42.0-75.0); Hemoglobin 12.3 g/dL (14.0-18.0); Mean Corpuscular HGB CONC 33.2 g/dL (32.0-36.0); Mean Corpuscular Hemoglobin 31.8 pg (27.0-31.0); Mean Corpuscular Volume 95.6 fl (78.0-98.0); Mean Platelet Volume 10.7 fL (7.4-10.4); Platelet Count 222 10x3/uL (130-400); RBC Distribution Width 14.6 % (11.5-14.5); Red Blood Cell (RBC) Count 3.87 mill/uL (4.70-6.10); White Blood Cell (WBC) Count 9.4 10x3/uL (4.8-10.8)
[2023-10-14] MEDS ORDERED: Empagliflozin 10 MG TAB PO SCH (08:49)
[2023-10-14] MEDS ORDERED: Furosemide 20 MG TAB PO SCH (09:00)
[2023-10-14 09:15] LABS: Anion Gap 12 mmol/L (10-20); BUN (Urea Nitrogen) 49 mg/dL (8.4-25.7); Calc. Creatinine Clearance 38 mL/min (70-130); Calcium 9.2 mg/dL (7.8-10.44); Carbon Dioxide 31 mmol/L (23-31); Chloride 98 mmol/L (98-107); Estimated GFR 35; Glucose 146 mg/dL (83-110); Potassium 3.8 mmol/L (3.5-5.1); Sodium 137 mmol/L (136-145)
[2023-10-14] MEDS: Furosemide 40 MG TAB PO SCH (10:01)
[2023-10-14] MEDS: Empagliflozin 25 MG TAB PO SCH (10:01)
[2023-10-14] MEDS: Cyclobenzaprine 10 MG TAB PO SCH (17:38)
[2023-10-14] MEDS: HumaLOG 300 UNITS/3 ML VIAL SC PRN (20:58)
[2023-10-15 05:59] LABS: #Eosinphils 0.2 thou/uL (0.0-0.7); #Monocytes 1.3 thou/uL (0.11-0.59); #Neutrophils 5.4 thou/uL (1.40-6.50); %Basophils 0.2 % (0.0-1.0); %Eosinophils 2.2 % (0.0-10.0); %Lymphocytes 23.7 % (21.0-51.0); %Monocytes 14.6 % (0.0-10.0); Hematocrit 36.5 % (42.0-52.0); Mean Corpuscular HGB CONC 32.9 g/dL (32.0-36.0); Mean Corpuscular Hemoglobin 30.8 pg (27.0-31.0); Mean Corpuscular Volume 93.6 fl (78.0-98.0); Mean Platelet Volume 10.9 fL (7.4-10.4); Platelet Count 217 10x3/uL (130-400); RBC Distribution Width 14.5 % (11.5-14.5); White Blood Cell (WBC) Count 9.2 10x3/uL (4.8-10.8)
[2023-10-15 06:36] LABS: Anion Gap 13 mmol/L (10-20); BUN (Urea Nitrogen) 44 mg/dL (8.4-25.7); Calc. Creatinine Clearance 39 mL/min (70-130); Calcium 9.1 mg/dL (7.8-10.44); Carbon Dioxide 30 mmol/L (23-31); Chloride 98 mmol/L (98-107); Estimated GFR 37; Glucose 114 mg/dL (83-110); Potassium 3.6 mmol/L (3.5-5.1); Sodium 137 mmol/L (136-145)
[2023-10-15] MEDS: Enoxaparin 30 MG (0.3 mL) SYRINGE SC SCH (08:48)
[2023-10-15 09:54] VITALS: BMI 30.5
[2023-10-16 04:07] LABS: #Eosinphils 0.3 thou/uL (0.0-0.7); #Monocytes 1.3 thou/uL (0.11-0.59); #Neutrophils 5.5 thou/uL (1.40-6.50); %Basophils 0.3 % (0.0-1.0); %Eosinophils 3.2 % (0.0-10.0); %Lymphocytes 21.2 % (21.0-51.0); %Monocytes 14.5 % (0.0-10.0); %Neutrophils 60.4 % (42.0-75.0); Hematocrit 36.5 % (42.0-52.0); Hemoglobin 11.7 g/dL (14.0-18.0); Mean Corpuscular HGB CONC 32.1 g/dL (32.0-36.0); Mean Corpuscular Hemoglobin 30.9 pg (27.0-31.0); Mean Corpuscular Volume 96.3 fl (78.0-98.0); Mean Platelet Volume 11.1 fL (7.4-10.4); Platelet Count 223 10x3/uL (130-400); RBC Distribution Width 14.4 % (11.5-14.5); Red Blood Cell (RBC) Count 3.79 mill/uL (4.70-6.10)
[2023-10-16 12:38] VITALS: BP 137/73; TEMP 98
== END 2023-10-16 15:57 | disposition home or self-care (01) | DRG 276 ==
LOC: ERS 12:29 → SUATTDRO 12:29 → ERHOLD 14:27 → 2SW 18:25
PROVIDERS: ADMIT Internal Medicine; ATTEND Internal Medicine
PROC: 3E033XZ Introduction of Vasopressor into Peripheral Vein, Percutaneous Approach (ICD-10-PCS; 2023-10-08)
PROC: 30233J1 Transfusion of Nonautologous Serum Albumin into Peripheral Vein, Percutaneous Approach (ICD-10-PCS; 2023-10-10)
PROC: 0JH609Z Insertion of Cardiac Resynchronization Defibrillator Pulse Generator into Chest Subcutaneous Tissue and Fascia, Open Approach (ICD-10-PCS; principal; 2023-10-13)
PROC: 02HK3KZ Insertion of Defibrillator Lead into Right Ventricle, Percutaneous Approach (ICD-10-PCS; 2023-10-13)
PROC: 02HL3KZ Insertion of Defibrillator Lead into Left Ventricle, Percutaneous Approach (ICD-10-PCS; 2023-10-13)
PROC: 02H63KZ Insertion of Defibrillator Lead into Right Atrium, Percutaneous Approach (ICD-10-PCS; 2023-10-13)
DX: I13.0 Hypertensive heart and chronic kidney disease with heart failure and stage 1 through stage 4 chronic kidney disease, or unspecified chronic kidney disease (principal); I21.A1 Myocardial infarction type 2; I50.43 Acute on chronic combined systolic (congestive) and diastolic (congestive) heart failure; N17.9 Acute kidney failure, unspecified; E78.5 Hyperlipidemia, unspecified; I25.10 Atherosclerotic heart disease of native coronary artery without angina pectoris; I48.0 Paroxysmal atrial fibrillation; I44.7 Left bundle-branch block, unspecified; I25.5 Ischemic cardiomyopathy; I08.0 Rheumatic disorders of both mitral and aortic valves; M54.2 Cervicalgia; M25.562 Pain in left knee; N18.30 Chronic kidney disease, stage 3 unspecified; E11.22 Type 2 diabetes mellitus with diabetic chronic kidney disease; Z90.49 Acquired absence of other specified parts of digestive tract; Z87.891 Personal history of nicotine dependence
CPT/HCPCS: 33225; 33249; 36415; 36416; 71045; 80048; 80053; 80061; 80069; 83036; 83735; 83880; 84443; 84484; 85025; 85610; 85730; 93005; 93010; 93306; 93798; 94640; 94760; 96372; 96374; C1725; C1763; C1882; C1895; C1898; C1900; J1250; J1580; J1650; J1815; J1940; J2001; J2270; J2405; J3490; P9047; Q9967

== ENCOUNTER 2025-04-20 09:59 | Outpatient (CLI) | payer OTHER | END 2025-04-20 10:00 | disposition home or self-care (01) | LOC: LABBT 09:59 | PROVIDERS: ATTEND Internal Medicine Cardiovascular Disease | DX: Z01.810 Encounter for preprocedural cardiovascular examination (principal); I48.11 Longstanding persistent atrial fibrillation; Z91.81 History of falling | CPT/HCPCS: 93005; 93010 ==

== ENCOUNTER 2025-06-04 08:49 | Outpatient (CLI) | payer OTHER ==
[2025-06-04 09:52] LABS: #Basophils 0.05 10x3/uL (0.0-0.2); #Eosinophils 0.14 10x3/uL (0.0-0.7); #Monocytes 0.71 10x3/uL (0.11-0.59); #Neutrophils 2.66 10x3/uL (1.40-6.50); %Basophils 0.8 % (0.0-1.0); %Eosinophils 2.3 % (0.0-10.0); %Lymphocytes 41.3 % (21.0-51.0); %Monocytes 11.7 % (0.0-10.0); %Neutrophils 43.7 % (42.0-75.0); Hematocrit 48.8 % (42.0-52.0); Hemoglobin 15.3 g/dL (14.0-18.0); Mean Corpuscular Hemoglobin 30.0 pg (27.0-31.0); Mean Corpuscular Volume 95.7 fL (78.0-98.0); Platelet Count 188 10x3/uL (130-400); Red Blood Cell (RBC) Count 5.10 mill/uL (4.70-6.10); White Blood Cell (WBC) Count 6.08 10x3/uL (4.8-10.8)
[2025-06-04 10:10] LABS: Anion Gap 13 mmol/L (10-20); BUN (Urea Nitrogen) 30 mg/dL (8.4-25.7); Calc. Creatinine Clearance 0 mL/min (70-130); Calcium 9.3 mg/dL (7.8-10.44); Carbon Dioxide 29 mmol/L (23-31); Chloride 103 mmol/L (98-107); Glucose 112 mg/dL (83-110); Potassium 4.3 mmol/L (3.5-5.1); Sodium 141 mmol/L (136-145)
[2025-06-04 10:16] LABS: INR-International Normal Ratio 1.3; PTT 46.9 sec (22.9-36.1); Prothrombin Time 16.4 sec (12.0-14.7)
== END 2025-06-04 08:50 | disposition home or self-care (01) ==
LOC: LABBT 08:49
PROVIDERS: ATTEND Internal Medicine Cardiovascular Disease
DX: Z01.812 Encounter for preprocedural laboratory examination (principal); I48.20 Chronic atrial fibrillation, unspecified; Z91.89 Other specified personal risk factors, not elsewhere classified
CPT/HCPCS: 80048; 85025; 85610; 85730